=== PATIENT | male | born 1960 | race Caucasian/White ===

== ENCOUNTER 2024-03-10 11:44 | Emergency (ER) | payer BC, SELFPAY ==
[2024-03-10 11:51] VITALS: PULSE 78
[2024-03-10 11:52] VITALS: BP 167/89; PULSE 80; RESP 18; O2SAT 96; BMI 27.8
--- NOTE | 2024-03-10 12:24 | CRLHL7_ITS ---
For Patients: As a result of the Century Cures Act, medical imaging exams and procedure reports are released immediately into your electronic medical record. You may view this report before your referring provider. If you have questions, please contact your health care provider. INDICATION: Left leg pain and redness TECHNIQUE: Ultrasound venous duplex lower left extremity. Compression venous exam was performed using lyons-scale, color Doppler, and spectral Doppler analysis. COMPARISON: None FINDINGS: Sonographic imaging demonstrates the left common femoral, deep femoral, superficial femoral, popliteal, posterior tibial and greater saphenous and the contralateral right common femoral veins to be fully compressible with normal color Doppler blood flow. Acute superficial thrombus involving multiple varicose veins in the left medial knee and proximal lower leg. IMPRESSION: 1. Left leg negative for DVT. 2. Acute SVT at the knee and proximal lower leg. Dictated by Tera Aviles MD @ 03/10/2024 2:39:03 PM (Electronically Signed)
--- NOTE | 2024-03-10 12:27 | ED.GENADULT ---
HPI - General Adult General Chief complaint: Extremity Pain/Injury, Lower Stated complaint: Need ultrasound on leg Time Seen by Provider: 03/10/24 11:46 History of Present Illness HPI narrative: Patient is a 64-year-old white male who is generally healthy, reports some mild trauma to his lower extremities at when he was out cutting some wood. He reports redness over his anterior ahumada on the left and his medial upper leg. He is uncertain of his last tetanus. He was seen in Urgent Care had a fairly normal white count but a D-dimer was drawn and was elevated. He has had no history of bleeding or clotting problems he has no shortness of breath or chest pain. His O2 sat is 96% on room air. He has had no lower extremity swelling issues. He presents to ER for evaluation. He has not had fever chills. Related Data Previous Rx's ?Medication ?Instructions ?Recorded azithromycin 250 mg tablet See Rx Instructions PO .COMPLEX #6 03/10/24 (Zithromax Z-Frankie) tabs Allergies Allergy/AdvReac Type Severity Reaction Status Date / Time Penicillins Allergy Verified 03/10/24 11:51 Review of Systems Status of ROS: Reports: 6 or more systems reviewed and unremarkable except as noted in History and below [facility] Medical History Tobacco smoker, 1 pack of cigarettes or less per day ?F17.210 - Nicotine dependence, cigarettes, uncomplicated (ICD-10) Social History Smoking Status: Current every day smoker What tobacco products do you use: cigarettes Smoking packs per day: 1 Smoking cigarettes per day: 20.0 Do you use any of these nicotine containing products: None Second hand tobacco smoke exposure: No How often do you have a drink containing alcohol: never How often do you have six or more drinks on one occasion: Never AUDIT-C Alcohol total score: 0 Non-prescribed substance use: denies use service: No Exam Narrative: Exam Narrative: Objective: Patient in no distress. He has left lower extremity shows no marked swelling but he has got anterior redness and warmth over his anterior ahumada that looks like about the size of a dollar bill, he has got some medial upper leg redness as well. There is no ascending cellulitic change or lymphangitic spread of the infection. His range of motion was leg is normal. He has got no open wounds noted, although there are a couple of scratches on his lower leg where he has the cellulitis. Const: Vital Signs, click to edit/add: Vital Signs - 24 hr 03/10/24 11:51 03/10/24 11:52 Pulse Rate [Left D orsalis Pedis] 78 Pulse Rate [Pulse Oximeter] 80 Respiratory Rate 18 Blood Pressure [Le ft Upper Arm] 167/89 H Pulse Oximetry 96 Oxygen Delivery Me thod Room Air Course Vital Signs Vital signs: Initial Vital Signs Pulse Rate 78 03/10/24 11:51 Vital Signs Pulse Rate 78 03/10/24 11:51 Pulse Rate 80 03/10/24 11:52 Respiratory Rate 18 03/10/24 11:52 Blood Pressure 167/89 H 03/10/24 11:52 Pulse Oximetry 96 03/10/24 11:52 Oxygen Delivery Method Room Air 03/10/24 11:52 Medications Administered Medications: Discontinued Medications Generic Name Dose Route Start Last Admin Trade Name Freq PRN Reason Stop Dose Admin Ceftriaxone Sodium 500 mg 03/10/24 12:24 03/10/24 13:18 Ceftriaxone 500 Mg Vial IM 03/10/24 12:25 500 mg ONCE ONE Administration Diphtheria/Tetanus/Acell Pertussis 0.5 ml 03/10/24 12:24 03/10/24 13:19 Tetanus/Diphth/Pertussis 0.5 Ml Syringe IM 03/10/24 12:25 0.5 ml .ONCE ONE Administration Lidocaine HCl 1 ml 03/10/24 12:24 03/10/24 13:20 Lidocaine 1% 5 Ml (Pf) 5 Ml Vial IM 1 ml DIRECTED PRN Administration Pain Medical Decision Making [facility] Narrative Medical decision making narrative: [age] year white male with left leg cellulitis with an elevated D-dimer. I think looking at a ultrasound of his leg makes sense, to rule out DVT. If this is negative then will cover him with Rocephin IM followed by a Zithromax Z-Frankie. Warm pack to the area elevation recommended light activity, follow up with regular doctor next few days not improving changes concerns would update his tetanus vaccine as well. Addendum 1:55 p.m. the patient got Rocephin IM, he has ultrasound that shows no DVT he does have some left anterior superficial clotting noted in the areas of redness. Recommend aspirin daily Zithromax as prescribed, hot pack, light activity and written note for off work for 5 days, recheck with primary care at that time. Discharge Plan Discharge Clinical Impression: Cellulitis of leg, Phlebitis of superficial vein Patient Disposition: Home, Self-Care Condition: Stable Instructions: Cellulitis (ED) Additional Instructions: Light activity recommended, warm pack or warm baths to the lower extremities daily or couple times a day, Z-Frankie as directed prescribed. Follow-up with primary care in the next 5-7 days, return sooner to ED a ED if worsening changes or concerns. Aspirin daily, off work for 5 days. Activity Level: Light activity Discharge Diet: Regular Prescriptions: New azithromycin [Zithromax Z-Frankie] 250 mg tablet See Rx Instructions .ROUTE .COMPLEX Qty: 6 0RF Rx Instructions: For 250 mg dose pack: take 500 mg today (day 1), then 250 mg for 4 days (days 2-5) Follow Up/Referrals: Provider,Not a Local [Primary Care Provider] - Stand Alone Forms: [employer] Info Instructions
[2024-03-10] MEDS: cefTRIAXone 500 MG VIAL IM (13:18)
[2024-03-10] MEDS: TETANUS/DIPHTH/PERTUSSIS 0.5 ML SYRINGE IM (13:19)
[2024-03-10] MEDS: LIDOCAINE 1% 5 ml (pf) 5 ML VIAL 1 ML IM (13:20)
== END 2024-03-10 14:07 | disposition home or self-care (01) ==
LOC: ED 13:13
PROVIDERS: Emergency Provider Family Medicine
DX: L03.116 Cellulitis of left lower limb (principal); I80.02 Phlebitis and thrombophlebitis of superficial vessels of left lower extremity
CPT/HCPCS: 90471; 90715; 93971; 96372; 99284; J0696